=== PATIENT | female | born 1980 | race Caucasian/White ===

== ENCOUNTER 2019-02-04 10:09 | Emergency (ER) | payer OTHER ==
[2019-02-04 10:14] VITALS: BMI 24.2
[2019-02-04] MEDS ORDERED: SODIUM CHLORIDE 1,000 ML IV STA ×2 (10:28→13:09)
--- NOTE | 2019-02-04 10:33 | PDOC ---
History of Present Illness - General Chief Complaint: Pain, Acute Stated Complaint: LOWER ABD PAIN Time Seen by Provider: 02/04/19 10:21 History Source: Patient (Patient walked in complaining of lower abdominal pain , weakness and excessive vaginal bleeding immediately after her menstrual period ended) Past History - Past Medical History Allergies/Adverse Reactions: Allergies Allergy/AdvReac Type Severity Reaction Status Date / Time latex Allergy Verified 02/04/19 10:10 Home Medications: Ambulatory Orders Cefuroxime Axetil [Ceftin -] 500 mg PO Q12H #20 tablet 02/04/19 Escitalopram Oxalate [Lexapro -] 10 mg PO DAILY 02/04/19 COPD: No - Suicide/Smoking/Psychosocial Hx Smoking History: Never smoked Hx Alcohol Use: Yes (RARE) Drug/Substance Use Hx: No *Physical Exam - Vital Signs Last Vital Signs Temp Pulse Resp BP Pulse Ox 100 F H 111 H 18 119/74 100 02/04/19 10:09 02/04/19 10:09 02/04/19 10:09 02/04/19 10:09 02/04/19 10:09 ED Treatment Course - LABORATORY CBC & Chemistry Diagram: 02/04/19 10:33 02/04/19 10:59 *DC/Admit/Observation/Transfer Diagnosis at time of Disposition: Urinary tract infection Qualifiers: Urinary tract infection type: acute cystitis Hematuria presence: without hematuria Qualified Code(s): N30.00 - Acute cystitis without hematuria Ovarian cyst Qualifiers: Laterality: unspecified laterality Qualified Code(s): N83.209 - Unspecified ovarian cyst, unspecified side - Discharge Dispostion Disposition: HOME Condition at time of disposition: Stable Decision to Admit order: No - Prescriptions Prescriptions: Cefuroxime Axetil [Ceftin -] 500 mg PO Q12H #20 tablet - Referrals - Patient Instructions Printed Discharge Instructions: Urinary Tract Infection - Post Discharge Activity Forms/Work/School Notes: Back to Work
[2019-02-04] MEDS ORDERED: ACETAMINOPHEN 1000 MG/100 ML VIAL (NON FORMULARY) IVPB ONE (10:40)
[2019-02-04] MEDS ORDERED: ACETAMINOPHEN INJECTION 100 ML IVPB ONE (10:40)
[2019-02-04 10:44] LABS: BASO % 0.6 % (0-2.0); EOS % 0.1 % (0-4.5); HEMATOCRIT 36.8 % (32.4-45.2); HEMOGLOBIN 12.6 GM/dl (10.7-15.3); MCH 31.5 pg (25.7-33.7); MCHC 34.2 g/dl (32.0-36.0); MEAN CELL VOLUME 91.9 fl (80-96); MEAN PLT VOLUME 7.9 fl (7.5-11.1); MONO % 3.9 % (3.8-10.2); NEUT % 90.4 % (42.8-82.8); PLATELET COUNT 281 K/MM3 (134-434); RBC 4.01 M/mm3 (3.60-5.2); RDW 11.9 % (11.6-15.6); WHITE BLOOD COUNT 18.3 K/mm3 (4.0-10.8)
[2019-02-04 11:09] LABS: ALBUMIN 3.8 g/dl (3.4-5.0); CALCIUM 8.8 mg/dl (8.5-10); CREATININE 0.6 mg/dl (0.55-1.3); TOT PROT 6.6 g/dl (6.4-8.2)
[2019-02-04 12:14] LABS: EPITHELIAL CELLS MODERATE /hpf
[2019-02-04] MEDS ORDERED: ONDANSETRON 4 MG/2 ML VIAL IVPUSH ONE (13:08)
[2019-02-04] MEDS ORDERED: ONDANSETRON 4 MG/2 ML VIAL ONE (13:08)
[2019-02-04] MEDS ORDERED: morphine SULFATE 4 MG/ML VIAL ONE (13:08)
[2019-02-04] MEDS ORDERED: morphine CARPU-JECT 4 MG/1 ML DISP.SYRIN IVPUSH ONE (13:08)
[2019-02-04] MEDS ORDERED: morphine CARPU-JECT 2 MG/1 ML DISP.SYRIN IVPUSH ONE (14:00)
[2019-02-04] MEDS ORDERED: cefTRIAXone SODIUM 1 GM VIAL ONE (15:06)
[2019-02-04] MEDS ORDERED: CEFTRIAXONE 1,000 MG in DEXTROSE 5%-WATER - 50 ML IVPB ONE (15:12)
[2019-02-04 15:13] VITALS: BP 103/61; PULSE 87; TEMP 98.7
== END 2019-02-04 16:09 | disposition home or self-care (01) ==
LOC: FER 10:09
PROC: 3E0337Z Introduction of Electrolytic and Water Balance Substance into Peripheral Vein, Percutaneous Approach (ICD-10-PCS; principal; 2019-02-04)
PROC: 3E033GC Introduction of Other Therapeutic Substance into Peripheral Vein, Percutaneous Approach (ICD-10-PCS; 2019-02-04)
PROC: 3E033NZ Introduction of Analgesics, Hypnotics, Sedatives into Peripheral Vein, Percutaneous Approach (ICD-10-PCS; 2019-02-04)
DX: N83.209 Unspecified ovarian cyst, unspecified side (principal); N30.00 Acute cystitis without hematuria
CPT/HCPCS: 36415; 74177-TC; 76856-TC; 80053; 81003; 81015; 84703; 85025; 87086; 87186; 99284-25; J0131; J7030